=== PATIENT | female | born 1940 | race African-American/Black ===

== ENCOUNTER 2020-09-30 13:53 | Observation (INO) | payer MEDICARE, OTHER ==
[2020-09-30 14:24] LABS: #Eosinphils 0.2 10x3/uL (0.0-0.5); #Monocytes 0.9 10x3/uL (0.0-1.1); %Basophils 0.2 % (0.0-2.0); %Eosinophils 1.2 % (0.0-6.0); %Lymphocytes 10.2 % (18.0-47.0); %Monocytes 7.3 % (0.0-10.0); %Neutrophils 80.9 % (40.0-75.0); Mean Corpuscular HGB CONC 33.1 g/dL (32.0-36.0); Mean Corpuscular Hemoglobin 31.5 pg (27.0-33.0); Mean Corpuscular Volume 95.3 fl (81.6-98.3); Mean Platelet Volume 9.2 fl (7.4-10.4); Platelet Count 222 10x3/uL (150-450); RBC Distribution Width 13.2 % (11.5-14.5); Red Blood Cell (RBC) Count 4.44 10x6/uL (3.90-5.03); White Blood Cell (WBC) Count 12.4 10x3/uL (3.5-10.5)
[2020-09-30 14:46] LABS: ALT (SGPT) 19 U/L (8-55); AST (SGOT) 25 U/L (5-34); Albumin 4.1 g/dL (3.4-4.8); Alkaline Phosphatase 66 U/L (40-110); Anion Gap 16 mmol/L (10-20); BUN (Urea Nitrogen) 24 mg/dL (9.8-20.1); Bilirubin, Total 0.6 mg/dL (0.2-1.2); Calc. Creatinine Clearance 0 mL/min (70-130); Calcium 9.5 mg/dL (7.8-10.44); Carbon Dioxide 19 mmol/L (23-31); Chloride 111 mmol/L (98-107); Globulin 2.4 g/dL (2.4-3.5); Glucose 115 mg/dL (83-110); Potassium 4.6 mmol/L (3.5-5.1); Protein, Total 6.5 g/dL (5.8-8.1); Sodium 141 mmol/L (136-145)
[2020-09-30] MEDS ORDERED: Aspirin Chewable 81 MG TAB ONE (14:50)
[2020-09-30] MEDS ORDERED: Diltiazem 125 MG/25 ML ONE (14:51)
[2020-09-30 15:18] LABS: INR-International Normal Ratio 0.9; PTT 24.7 sec (22.0-33.0); Prothrombin Time 10.4 sec (9.5-12.1)
[2020-09-30 17:14] LABS: SARS-CoV-2 NAA Rapid Test Not Detected (NotDetected)
[2020-09-30 17:58] VITALS: BMI 30.7
[2020-09-30] MEDS ORDERED: Calcium Carbonate 500 MG ChewTAB PO PRN (19:19)
[2020-09-30] MEDS ORDERED: Senokot S 8.6-50 MG TAB PO PRN (19:19)
[2020-09-30] MEDS ORDERED: Ondansetron PF 4 MG/2 ML Vial IVP PRN (19:19)
[2020-09-30] MEDS ORDERED: Zolpidem Tartrate 5 MG TAB PO PRN (19:19)
[2020-09-30] MEDS ORDERED: Acetaminophen 325 MG TAB PO PRN (19:19)
[2020-09-30] MEDS ORDERED: Guaifenesin DM 100-10/5 ML UDCUP PO PRN (19:19)
[2020-09-30] MEDS ORDERED: Lactated Ringer's 500 ML IV SCH ×2 (19:30→21:15)
[2020-09-30] MEDS ORDERED: Diltiazem 125 MG in Sodium Chloride 0.9% 100 ML IVPB SCH (19:30)
[2020-09-30] MEDS: Flecainide 50 MG TAB PO SCH (20:54)
[2020-09-30] MEDS: Metoprolol Tartrate 25 MG TAB PO SCH (20:54)
[2020-09-30] MEDS ORDERED: Rivaroxaban 10 MG TAB PO SCH (21:00)
[2020-09-30] MEDS ORDERED: Atorvastatin Calcium 20 MG TAB PO SCH (21:00)
[2020-09-30 22:32] LABS: CKMB 2.6 ng/mL (0-6.6)
[2020-10-01 05:41] LABS: #Eosinphils 0.2 10x3/uL (0.0-0.5); #Monocytes 0.5 10x3/uL (0.0-1.1); #Neutrophils 3.2 10x3/uL (1.5-8.4); %Basophils 0.5 % (0.0-2.0); %Eosinophils 3.1 % (0.0-6.0); %Lymphocytes 36.7 % (18.0-47.0); %Monocytes 7.6 % (0.0-10.0); %Neutrophils 51.8 % (40.0-75.0); Hemoglobin 12.7 g/dL (12.0-15.5); Mean Corpuscular HGB CONC 32.6 g/dL (32.0-36.0); Mean Corpuscular Hemoglobin 31.1 pg (27.0-33.0); Mean Corpuscular Volume 95.6 fl (81.6-98.3); Mean Platelet Volume 9.2 fl (7.4-10.4); Platelet Count 202 10x3/uL (150-450); RBC Distribution Width 13.7 % (11.5-14.5); Red Blood Cell (RBC) Count 4.08 10x6/uL (3.90-5.03); White Blood Cell (WBC) Count 6.2 10x3/uL (3.5-10.5)
[2020-10-01 05:50] LABS: Anion Gap 10 mmol/L (10-20); BUN (Urea Nitrogen) 18 mg/dL (9.8-20.1); Calc. Creatinine Clearance 69 mL/min (70-130); Carbon Dioxide 25 mmol/L (23-31); Chloride 111 mmol/L (98-107); Glucose 100 mg/dL (83-110); Potassium 4.2 mmol/L (3.5-5.1); Sodium 142 mmol/L (136-145)
[2020-10-01 07:30] LABS: Bilirubin Neg (Negative); Blood, Urine Negative (Negative); Clarity Clear (Clear); Glucose, Urine (Dipstick) Normal (Negative); Ketone, Urine Negative (Negative); Leukocyte Negative (Negative); Nitrite Negative (Negative); Protein, Urine (Dipstick) 30 mg/dl (Neg-Trace); Specific Gravity, Urine 1.025 (1.002-1.036); Urobilinogen Normal mg/dL (Less than 2)
[2020-10-01 07:42] LABS: Bacteria/HPF None Seen HPF (None Seen); Mucous/LPF 1+ LPF (<2+); RBC/HPF 0-3 HPF (0-3); Squamous Epithelial 0-3 HPF (0-3); WBC/HPF 0-3 HPF (0-3)
[2020-10-01] MEDS: Flecainide 50 MG TAB PO SCH (07:59)
[2020-10-01] MEDS: Metoprolol Tartrate 25 MG TAB PO SCH (07:59)
[2020-10-01] MEDS ORDERED: Lisinopril 10 MG TAB PO SCH (09:00)
[2020-10-01 10:31] LABS: Magnesium 1.6 mg/dL (1.6-2.6)
[2020-10-01] MEDS ORDERED: Magnesium 2 GM/50 ML 2 GM in Premix Bag 1 BAG IVPB SCH (11:45)
[2020-10-01 15:48] VITALS: BP 139/70; TEMP 97
== END 2020-10-01 15:52 | disposition home or self-care (01) ==
LOC: CSHERS 13:53 → INTOOBSV 16:51 → CSHERHOLD 16:51 → CSHTELE 17:06
PROVIDERS: ADMIT Internal Medicine; ATTEND Internal Medicine
DX: I48.0 Paroxysmal atrial fibrillation (principal); R07.9 Chest pain, unspecified; D72.829 Elevated white blood cell count, unspecified; I12.9 Hypertensive chronic kidney disease with stage 1 through stage 4 chronic kidney disease, or unspecified chronic kidney disease; N18.9 Chronic kidney disease, unspecified; E78.5 Hyperlipidemia, unspecified; Z79.01 Long term (current) use of anticoagulants; Z79.899 Other long term (current) drug therapy; Z20.822 Contact with and (suspected) exposure to COVID-19
CPT/HCPCS: 71045; 80048; 80053; 81001; 82550; 82553; 83605; 83735; 84443; 84484 ×3; 85025 ×2; 85610; 85730; 93005; 93306; 96365; 96366; 99285; U0002; 36415; 96375; G0378; J3475